=== PATIENT | female | born 1960 | race Caucasian/White ===

== ENCOUNTER 2017-09-19 07:07 | Emergency (ER) | payer OTHER ==
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
--- NOTE | 2017-09-19 08:55 | CR ---
Chest 2V INDICATION: Chest Pain FINDINGS: Negative chest.
== END 2017-09-19 11:03 | disposition home or self-care (01) ==
LOC: JP.ED 07:07
DX: R07.89 Other chest pain (principal)
CPT/HCPCS: 36415; 71020; 71020-26; 80053; 82553; 84484; 85025; 85379; 93005; 99285-25